=== PATIENT | male | born 1960 | race Caucasian/White ===

== ENCOUNTER 2017-04-03 20:20 | Emergency (ER) | payer SELFPAY ==
[~2017-04-03] VITALS: Ht 177.8 cm; Wt 116.0 kg
[2017-04-03 20:24] VITALS: Ht 177.8 cm; Wt 116.0 kg
--- NOTE | 2017-04-04 00:29 | RADRPT ---
PROCEDURE: CT BRAIN WITHOUT CONTRAST CLINICAL INDICATION: 56-year-old male with headaches. TECHNIQUE: The study was performed utilizing a [employer] VCT 64-slice CT scanner. Direct axia l sections were obtained from the foramen magnum to the vertex without the use of intravenous contra st material. Sagittal and coronal reformations were obtained. One or more the following dose reduct ion techniques were utilized: automated exposure control, adjustment of the mA and/or kV according t o patient's size or use of iterative reconstruction technique. The images were viewed on a PACS Secpanel. CTD/vol = 42.0 mGy; Total Exam DLP = 720.2 mGy-cm. COMPARISON: None. FINDINGS: The ventricles have a normal size, shape and position. There is no evidence for mass effect or midl ine shift. There are no intracranial areas of abnormal attenuation. There is no evidence for acute intra or extra-axial blood. The bony calvarium is intact. There is mild mucosal thickening within t he ethmoid air cells bilaterally. No air-fluid levels are noted. The mastoid air cells are without significant soft tissue. IMPRESSION: 1. The intracranial contents are unremarkable on this noncontrast CT scan of the brain. 2. Mild mucosal thickening ethmoid air cells. .Solis Obrien MD, MD Date Time Electronically viewed and signed by .Solis Obrien MD, on 04/04/2017 00:29 .M/
--- NOTE | 2017-04-04 00:30 | RADRPT ---
PROCEDURE: CHEST - 1 VIEW CLINICAL INDICATION: 56-year-old male with chest pain and headaches. TECHNIQUE: A single frontal AP portable view of the chest was performed. The images were reviewed on a PACS workstation. COMPARISON: None. FINDINGS: The cardiomediastinal silhouette is within normal limits. The left costophrenic angle is incomplete ly visualized. There is no evidence for an infiltrate. There is no evidence for congestive heart f ailure. There is no evidence for pneumothorax. The osseous structures are intact. IMPRESSION: No evidence for active cardiopulmonary disease. .Solis Obrien MD, MD Date Time Electronically viewed and signed by .Solis Obrien MD, on 04/04/2017 00:29 .M/
[2017-04-04 00:57] LABS: ADD SCAN DIFF NO
[2017-04-04 01:05] LABS: BASOPHILS % 0.3 % (0.0-2.0); EOSINOPHILS # 0.1 10^3/ul (0.0-0.5); EOSINOPHILS % 0.7 % (0.0-7.0); HEMATOCRIT 41.9 % (42.0-52.0); HEMOGLOBIN 13.6 g/dl (14.0-18.0); LYMPHOCYTES # 2.5 10^3/ul (0.8-2.9); LYMPHOCYTES % 17.3 % (15.0-51.0); MEAN CORPUSCULAR HEMOGLOBIN 27.3 pg (29.0-33.0); MEAN CORPUSCULAR HGB CONC 32.5 g/dl (32.0-37.0); MEAN PLATELET VOLUME 10.7 fl (7.4-10.4); MONOCYTE # 1.1 10^3/ul (0.3-0.9); MONOCYTES % 7.6 % (0.0-11.0); NEUTROPHIL # 10.5 10^3/ul (1.6-7.5); NEUTROPHILS % 73.7 % (39.0-77.0); PLATELET COUNT 265 10^3/UL (140-415); RED BLOOD COUNT 4.99 10^6/ul (4.70-6.10); RED CELL DISTRIBUTION WIDTH 14.1 % (11.5-14.5); WHITE BLOOD COUNT 14.3 10^3/ul (4.8-10.8)
[2017-04-04 01:14] LABS: INR 1.04; PARTIAL THROMBOPLASTIN TIME 34.3 Sec (25.0-35.0); PROTIME 13.6 Sec (12.2-14.2); PT RATIO 1.1
[2017-04-04 01:26] LABS: ANION GAP 16 (8-16); BLOOD UREA NITROGEN 13 mg/dl (7-20); CALCIUM 9.9 mg/dl (8.4-10.2); CARBON DIOXIDE 21 mmol/L (21-31); CHLORIDE 104 mmol/L (97-110); CREATININE 0.72 mg/dl (0.61-1.24); GLUCOSE 143 mg/dl (70-220); SODIUM 137 mmol/L (135-144)
[2017-04-04 02:07] LABS: TROPONIN-I < 0.012 ng/ml (0.00-0.12)
[2017-04-04] MEDS ORDERED: LORA1TAB PO (02:38)
--- NOTE | 2017-04-04 02:40 | ERD ---
ER Documentation Chief Complaint Date/Time DATE: 04/04/17 TIME: 02:38 Chief Complaint headache, facial numbness, back pain, abdominal pain HPI 56-year-old male comes in saying he has been feeling anxious preceding the headache and perioral numbness along with back pain numbness in both of his fingertips. He said is been under a lot of dust lately. No nausea no vomiting or chills. No other current complaints. No chest pain. No palpitations. No other issues. Triage does abdominal pain, however patient adamantly refuses upon questioning intermittent in the room ROS All systems reviewed and are negative except as per history of present illness. Medications Home Meds Active Scripts Lorazepam* (Lorazepam*) 1 Mg Tablet, 1 MG PO Q8H Y for ANXIETY, #10 TAB Prov:TIARA PUTNAMRomero 04/04/17 Allergies Allergies: Coded Allergies: No Known Allergy (Unverified , 04/03/17) PMhx/Soc Smoking Status: Never smoker Physical Exam Vitals Vital Signs Date Time Temp Pulse Resp B/P Pulse Ox O2 Delivery O2 Flow Rate FiO2 04/04/17 01:40 82 18 135/81 99 Room Air 04/03/17 20:24 98.4 112 20 159/89 100 Physical Exam Const: [] Head: Atraumatic Eyes: Normal Conjunctiva ENT: Normal External Ears, Nose and Mouth. Neck: Full range of motion..~ No meningismus. Resp: Clear to auscultation bilaterally Cardio: Regular rate and rhythm, no murmurs Abd: Soft, non tender, non distended. Normal bowel sounds Skin: No petechiae or rashes Back: No midline or flank tenderness Ext: No cyanosis, or edema Neur: Awake and alert Psych: Normal Mood and Affect Result Diagram: 04/04/17 0015 04/04/17 0015 Results 24 hrs Laboratory Tests Test 04/04/17 00:15 White Blood Count 14.310^3/ul Red Blood Count 4.9910^6/ul Hemoglobin 13.6g/dl Hematocrit 41.9% Mean Corpuscular Volume 84.0fl Mean Corpuscular Hemoglobin 27.3pg Mean Corpuscular Hemoglobin Concent 32.5g/dl Red Cell Distribution Width 14.1% Platelet Count 41062^3/UL Mean Platelet Volume 10.7fl Neutrophils % 73.7% Lymphocytes % 17.3% Monocytes % 7.6% Eosinophils % 0.7% Basophils % 0.3% Nucleated Red Blood Cells % 0.0/100WBC Neutrophils # 10.510^3/ul Lymphocytes # 2.510^3/ul Monocytes # 1.110^3/ul Eosinophils # 0.110^3/ul Basophils # 0.010^3/ul Nucleated Red Blood Cells # 0.010^3/ul Prothrombin Time 13.6Sec Prothrombin Time Ratio 1.1 INR International Normalized Ratio 1.04 Activated Partial Thromboplast Time 34.3Sec Sodium Level 137mmol/L Potassium Level 4.0mmol/L Chloride Level 104mmol/L Carbon Dioxide Level 21mmol/L Anion Gap 16 Blood Urea Nitrogen 13mg/dl Creatinine 0.72mg/dl Glucose Level 143mg/dl Calcium Level 9.9mg/dl Troponin I < 0.012ng/ml Procedures/MDM EKG: Rate/Rhythm: Normal Sinus Rhythm QRS, ST, T-waves: No changes consistent w/ acute ischemia Impression: No evidence of ischemia or arrhythmia Chest X-ray 1V Interpreted by me: Soft Tissue: No acute abnormalities Bones: No acute abnormalities Mediastinum/Cardiac Silhouette/Lungs: No acute abnormalities CT of the head is negative Medical decision-making: Very pleasant patient comes in with looks to be stress related issues. Cardiac enzymes along with neurological exam remained completely normal. He is completely pain-free at this time. He is well- appearing. This seems to be related to life stressors. He has been told to return immediately for any return of symptoms whatsoever. At this point is completely symptom-free. Discharged home with [facility]. Departure Diagnosis: Primary Impression: Multiple complaints Condition: Stable Patient Instructions: Anxiety Reaction TIARA PUTNAM Apr 04, 2017 02:40
[2017-04-04 03:02] LABS: ADD UMIC NO; URINE BILIRUBIN (Dip) NEGATIVE (NEGATIVE); URINE BLOOD (Dip) NEGATIVE (NEGATIVE); URINE COLOR LT. YELLOW (YELLOW); URINE GLUCOSE (Dip) NEGATIVE (NEGATIVE); URINE KETONES (Dip) NEGATIVE (NEGATIVE); URINE LEUKOCYTE ESTERASE (Dip) NEGATIVE (NEGATIVE); URINE NITRITE (Dip) NEGATIVE (NEGATIVE); URINE TOTAL PROTEIN (Dip) NEGATIVE (NEGATIVE); URINE UROBILINOGEN (Dip) 1.0 E.U./dL (0.1-1.0)
[2017-04-04 03:20] VITALS: BP 130/85; PULSE 72; RESP 18
== END 2017-04-04 03:33 | disposition home or self-care (01) ==
LOC: E/R 20:20
DX: R51 Headache (principal); F41.9 Anxiety disorder, unspecified; R20.0 Anesthesia of skin; R10.9 Unspecified abdominal pain; R07.9 Chest pain, unspecified
CPT/HCPCS: 36415; 70450; 71010; 80048; 81003; 84484; 85025; 85610; 85730; 93005